=== PATIENT | male | born 1985 | race Caucasian/White ===

== ENCOUNTER 2017-02-24 11:29 | Emergency (ER) | payer SELFPAY ==
[~2017-02-24] VITALS: Ht 180.3 cm; Wt 77.1 kg
[2017-02-24] MEDS ORDERED: zofran (11:40)
[2017-02-24] MEDS ORDERED: acyclovir (11:40)
[2017-02-24] MEDS ORDERED: oxycodone (11:40)
--- NOTE | 2017-02-24 15:00 | NUR ---
about to d/c pt home. pt refuses to go home,pt upset says that his mom who is a doctor told him that he needs to be further evaluated. notified.
--- NOTE | 2017-02-24 15:20 | NUR ---
hydrology teacher at bedside. pt refuses the blood to be drawn, arguing with the hydrology teacher and says wants to talk to the md. pt talking to the pt next bed and family member and disturbing them. security called to stand by, but pt arguing with the security.
--- NOTE | 2017-02-24 15:53 | NUR ---
Patient discharged to home in stable conditon. Written and verbal after care instructions given. Patient verbalizes understanding of instructions.pt talked to er md multiple time regarding getting pain med.pt walks in steady gait, no sign of distress. pt says is not driving.
[2017-02-24 15:54] VITALS: BP 121/68
== END 2017-02-24 15:55 | disposition home or self-care (01) ==
LOC: ER 11:31
DX: T78.40XA Allergy, unspecified, initial encounter (principal); R51 Headache
CPT/HCPCS: A4663; J1170; J1200; J2405; J7030

== ENCOUNTER 2017-03-01 10:03 | Emergency (ER) | payer SELFPAY ==
[~2017-03-01] VITALS: Ht 175.3 cm; Wt 86.2 kg
[~2017-03-01 10:03] MED LIST: acyclovir; oxycodone; zofran
--- NOTE | 2017-03-01 10:56 | NUR ---
IV PLACED, MEDS ADMINISTERED, 1L 0.9NS BOLUS INFUSING.
--- NOTE | 2017-03-01 12:04 | NUR ---
MSE COMPLETED, 1L 0.9 NS INFUSED. SALINE LOCK D/C'D WITH CATH INTACT. PT GIVEN ACI, STATED HIS GIRLFRIEND AND MOM WERE TO DRIVE HIM HOME. PT AMBULATED W/O DIFF/TOOK ALL BELONGINGS.
[2017-03-01 12:05] VITALS: BP 148/68
== END 2017-03-01 12:00 | disposition home or self-care (01) ==
LOC: ER 10:03
DX: R51 Headache (principal); R11.2 Nausea with vomiting, unspecified
CPT/HCPCS: 70450; A4663; J1170; J2405; J7030